=== PATIENT | female | born 1990 | race African-American/Black ===

== ENCOUNTER 2020-09-04 10:06 | Emergency (ER) | payer MEDICAID ==
[~2020-09-04] VITALS: Ht 160 cm; Wt 49.0 kg
[2020-09-04 11:32] LABS: CLARITY URINE TURBID (CLEAR); COLOR URINE YELLOW (YELLOW); KETONES URINE NEGATIVE (NEGATIVE); LEUKOCYTE ESTERASE URINE 3+ (NEGATIVE); NITRITE URINE NEGATIVE (NEGATIVE); OCCULT BLOOD URINE TRACE (NEGATIVE); PROTEIN URINE NEGATIVE (NEGATIVE); SPECIFIC GRAVITY URINE 1.015 (1.005-1.030)
[2020-09-04 12:27] LABS: BASOPHILS % 0.8 % (0.0-2.0); EOSINOPHILS % 14.1 % (0.0-5.0); HEMATOCRIT. 39.8 % (36.0-48.0); HEMOGLOBIN. 12.8 g/dL (12.0-16.0); LYMPHOCYTES % 21.5 % (20.0-50.0); MEAN CORPUSCULAR HEMOGLOBIN 28.4 pg (28.0-32.0); MEAN CORPUSCULAR VOLUME 88.2 fL (81.0-99.0); MEAN PLATELET VOLUME 10.9 fl (7.4-10.4); MONOCYTES % 6.5 % (2.0-8.0); NEUTROPHILS % 57.1 % (40.0-76.0); PLATELET 278 x1000/uL (130-400); RED BLOOD CELL COUNT 4.52 mill/uL (4.2-5.4); RED CELL DISTRIBUTION WIDTH 13.8 % (11.6-14.6)
[2020-09-04 12:40] LABS: CHLORIDE 107 mEq/L (98-107)
[2020-09-04 12:50] LABS: HCG SCREEN NEGATIVE
[2020-09-04] MEDS ORDERED: CEFTRIAXONE 1 G PREMIX 50 ML IV NR (13:15)
[2020-09-04] MEDS ORDERED: CEFTRIAXONE SODIUM 1 G/VIAL IM ONE (16:15)
[2020-09-04] MEDS ORDERED: SULFAMETHOXAZOLE/TRIMETHOPRIM 400/80MG TAB PO ONE (17:45)
[2020-09-04] MEDS ORDERED: TRAZODONE HCL 50MG TABLET PO SCH (17:45)
[2020-09-04 18:18] LABS: METHADONE URINE SCREEN NEGATIVE (NEGATIVE)
[2020-09-04 18:19] LABS: *AMPHETAMINES SCREEN URINE NEGATIVE (NEGATIVE); *BENZODIAZEPINES SCREEN URINE NEGATIVE (NEGATIVE); *COCAINE SCREEN URINE NEGATIVE (NEGATIVE); CANNABINOID URINE SCREEN NEGATIVE (NEGATIVE); OPIATES URINE SCREEN NEGATIVE (NEGATIVE); PHENCYCLIDINE URINE SCREEN NEGATIVE (NEGATIVE)
[2020-09-04 18:20] LABS: *BARBITURATES SCREEN URINE NEGATIVE (NEGATIVE)
[2020-09-04 22:30] VITALS: BP 95/50
== END 2020-09-04 22:50 | disposition home or self-care (01) ==
LOC: ER 10:24
DX: R51.9 Headache, unspecified (principal); N39.0 Urinary tract infection, site not specified
CPT/HCPCS: 36415; 80053; 80305; 81003; 84703; 85025; 99285

== ENCOUNTER 2020-09-06 16:58 | Emergency (ER) | payer MEDICAID ==
[~2020-09-06] VITALS: Ht 165.1 cm; Wt 50.0 kg
[2020-09-06 17:02] VITALS: BP 136/88
[2020-09-06] MEDS ORDERED: IBUPROFEN 600MG TABLET PO ONE (17:30)
== END 2020-09-06 18:23 | disposition home or self-care (01) ==
LOC: ER 16:58
DX: H60.92 Unspecified otitis externa, left ear (principal); M79.641 Pain in right hand; F17.200 Nicotine dependence, unspecified, uncomplicated; Z98.890 Other specified postprocedural states
CPT/HCPCS: 73130; 81025; 99283